=== PATIENT | female | born 1985 | race Caucasian/White ===

== ENCOUNTER 2019-07-20 15:53 | Emergency (ER) | payer SELFPAY ==
[~2019-07-20] VITALS: Ht 157.5 cm; Wt 86.4 kg
[2019-07-20] MEDS ORDERED: CEPHALEXIN MONOHYDRATE 500 MG CAPSULE PO ONE (16:30)
[2019-07-20] MEDS ORDERED: MUPIROCIN CALCIUM 2% 22 GM OINTMENT TP ONE (16:30)
[2019-07-20] MEDS ORDERED: IBUPROFEN 400 MG TABLET PO ONE (16:30)
[2019-07-20 16:59] VITALS: BP 132/78
== END 2019-07-20 17:04 | disposition home or self-care (01) ==
LOC: EMS 15:54
DX: L03.314 Cellulitis of groin (principal); F17.210 Nicotine dependence, cigarettes, uncomplicated
CPT/HCPCS: 99406